=== PATIENT | male | born 1995 | race Caucasian/White ===

== ENCOUNTER 2020-08-16 13:05 | Emergency (ER) | payer OTHER, SELFPAY ==
[2020-08-16 13:07] VITALS: BP 147/98; PULSE 67; RESP 16; TEMP 36.3; O2SAT 97; BMI 19.1
--- NOTE | 2020-08-16 13:29 | CTR_ITS ---
PROCEDURE INFORMATION: Exam: CT Abdomen And Pelvis With Contrast Exam date and time: 08/16/2020 1:50 PM Age: 25 years old Clinical indication: Abdominal pain; Acute; Additional info: Abdominal pain, bloody stools TECHNIQUE: Imaging protocol: Computed tomography of the abdomen and pelvis with contrast. Radiation optimization: All CT scans at this facility use at least one of these dose optimization techniques: automated exposure control; mA and/or kV adjustment per patient size (includes targeted exams where dose is matched to clinical indication); or iterative reconstruction. Contrast material: OMNIPAQUE 300; Contrast volume: 95 ml; Contrast route: INTRAVENOUS (IV); COMPARISON: No relevant prior studies available. RADIATION DOSE METRICS: Total DLP (mGy-cm): 629.21 FINDINGS: Liver: Normal. No mass. Gallbladder and bile ducts: Normal. No calcified stones. No ductal dilation. Pancreas: Normal. No ductal dilation. Spleen: Normal. No splenomegaly. Adrenal glands: Normal. No mass. Kidneys and ureters: 14 mm left renal cyst has benign features. Follow-up is not necessary. Stomach and bowel: There is mucosal thickening of the terminal ileum, cecum, and large bowel with mild adjacent mesenteric inflammatory stranding. Mucosal thickening is most pronounced in the cecal region. Appendix: There has been an appendectomy. Intraperitoneal space: There is a small amount of free fluid the pelvis. Vasculature: Unremarkable. No abdominal aortic aneurysm. Lymph nodes: Unremarkable. No enlarged lymph nodes. Urinary bladder: Unremarkable as visualized. Reproductive: Unremarkable as visualized. Bones/joints: Unremarkable. No acute fracture. Soft tissues: Unremarkable. CT/CT abdomen pelvis w con* [id number] IMPRESSION: Findings as stated above are consistent with a nonspecific enteritis. COMMENTS: Consistent with the [employer]'s Incidental Findings Committee white paper (J Am Brett Radiol 2018): Any incidental renal lesion less than 1 cm or classified as too small to characterize, or any incidental cystic renal lesion characterized as simple-appearing, is likely benign. No follow-up imaging is recommended for these lesions per consensus recommendations based on imaging criteria. Radiation Dose CTDIVOL = (mGy): DLP = 629.21 (mGy-cm)
--- NOTE | 2020-08-16 13:33 | W.ED.GIBLEED ---
HPI - GI Bleed General: Chief complaint: GI Bleed Stated complaint: ABD PAIN/BLOODY STOOL FOR 8 HRS Time Seen by Provider: 08/16/20 13:19 Source: patient Mode of arrival: ambulatory Limitations: no limitations History of Present Illness: HPI Narrative: Patient is a 25-year-old male who presents to the emergency department to be evaluated. Symptoms started about 4 days ago with abdominal pain in the periumbilical region that has persistent. Following that, he developed diarrhea about 2 days ago and it eventually became bloody. He says he has bright red blood in the stools. No perianal pain. He has some nausea but no vomiting. No fever, no sick contacts. He states that he has not eaten anything different than what he normally eats. MD complaint: gross hematochezia Onset (ago): day(s) (2) Pain Consistency: intermittent Severity: mild Relieving factors: none Exacerbating factors: none Associated symptoms: Reports abdominal pain and nausea; Denies chills, easy bruising, epistaxis, fever(s), headache(s), malaise, other bleeding, poor appetite, rash, syncope or vomiting Treatments Prior to Arrival: none Review of Systems General: Reports: 10 or more systems reviewed and unremarkable except in HPI and below Const: Denies: fever(s), chills or malaise ENMT: Denies: epistaxis Card: Denies: syncope GI: Reports: abdominal pain and nausea; Denies: vomiting Skin/Breast: Denies: rash Neuro: Denies: headache(s) Gonzalez/Lymph: Denies: easy bruising Physical Exam Const: COMMON NORMALS: no acute distress, average body habitus, patient oriented x3, no limitations, healthy appearing, alert and well nourished HENMT: COMMON NORMALS: normocephalic, atraumatic and moist oral mucous membranes HEAD & SCALP: normocephalic and atraumatic Neck/C-Spine: COMMON NORMALS: no meningeal signs and no JVD Resp: COMMON NORMALS: normal respiratory effort, No retractions, No use of accessory muscles, clear to auscultation bilaterally and percussion normal AUSCULTATION: clear to auscultation bilaterally PERCUSSION: percussion normal Cardio: COMMON NORMALS: no JVD, regular rate, regular rhythm, S1 normal heart sound present, S2 normal heart sound present, No gallops present (Cardio), No clicks present (Cardio), No murmurs present (Cardio), No rub (Cardio) and Peripheral pulses 2+ throughout RATE: regular rate RHYTHM: regular rhythm HEART SOUNDS: S1 normal heart sound present and S2 normal heart sound present PERIPHERAL PULSES: Peripheral pulses 2+ throughout GI: COMMON NORMALS: Normal to inspection, nondistended, normoactive bowel sounds present, Soft to palpation, No hepatosplenomegaly present, no masses and no bruits PALPATION: Yes Soft to palpation, Yes Tenderness to palpation present (GI) (periumbilical) Details: RLQ and Yes No hepatosplenomegaly present Extremity: COMMON NORMALS: normal to inspection, full ROM, capillary refill normal, no calf tenderness and no pedal edema Neuro: COMMON NORMALS: patient oriented x3 SENSORIUM/ORIENTATION: Yes alert MENINGEAL SIGNS: Yes no meningeal signs Skin: COMMON NORMALS: no rashes or lesions noted, no wounds, turgor normal, no jaundice, no petechiae and no mottling GENERAL SKIN EXAM: no rashes or lesions noted and turgor normal Course Reevaluation(s): Reevaluation #1: Discussed his lab and imaging findings with him. Labs unremarkable. CT scan consistent with enteritis. We will discharge him home on conservative measures. Explained to him that most cases of enteritis are self-limiting and he does not require antibiotics. He voiced understanding and is in agreement with the plan. Time: 15:41 Vital Signs: Vital signs: Vital Signs Temperature 97.4 F L 08/16/20 13:07 Pulse Rate 73 08/16/20 15:57 Respiratory Rate 18 08/16/20 15:57 Blood Pressure 147/92 08/16/20 14:08 Pulse Oximetry 95 08/16/20 15:57 MDM - GI Bleed MDM Narrative: Medical decision making narrative: 25-year-old male who presents to the emergency department with abdominal pain and diarrhea that eventually had some blood. Evaluation in the emergency department is consistent with nonspecific enteritis. No red flags on examination of all lab work-up. He is discharged home on conservative measures. Medical Records: Attestation: I reviewed the patient's medical records. Lab Data: Attestation: I reviewed the patient's lab results. Labs: Lab Results 08/16/20 08/16/20 08/16/20 Range/Units 13:37 13:57 13:57 WBC 6.1 (4.0-10.0) 10^3/ uL RBC 5.60 H (4.1-5.3) 10^6/u L Hgb 17.4 H (11.7-16.6) g/dL Hct 51.4 (42.0-52.0) % MCV 91.8 (80-94) fL MCH 31.1 (28.0-34.0) pg MCHC 33.9 (30.0-36.0) g/dL RDW 12.2 (12.1-15.1) % Plt Count 196 (130-400) 10^3/c mm MPV 10.5 H (7.4-10.4) fL Neut % (Auto) 76.8 % Lymph % (Auto) 10.5 % Haywood % (Auto) 11.9 % Eos % (Auto) 0.3 % Baso % (Auto) 0.3 % Neut # (Auto) 4.66 (1.8-7.7) 10^3/u L Lymph # (Auto) 0.6 L (0.8-4.8) 10^3/u L Haywood # (Auto) 0.7 (0.2-0.9) 10^3/u L Eos # (Auto) 0.0 (0.0-0.8) 10^3/u L Baso # (Auto) 0.0 (0.0-0.1) 10^3/u L Nucleated RBC % (a uto) 0 % Nucleated RBCs # 0.0 /100WBC PT 14.50 (12.1-14.9) SECO NDS INR 1.10 (0.8-1.2) Sodium (136-145) mmol/L Potassium (3.5-5.1) mmol/L Chloride (98-107) mmol/L Carbon Dioxide (22-29) mmol/L Anion Gap (5-19) BUN (6-20) mg/dL Creatinine (0.7-1.2) mg/dL GFR Calculation (90-130) mL/min Glucose (65-115) mg/dL Calculated Osmolal ity (285-295) mOsm/k g Lactate (0.5-2.2) mmol/L Calcium (8.5-10.5) mg/dL Total Bilirubin (0.15-1.2) mg/dL AST (0-40) U/L ALT (0-41) U/L Alkaline Phosphata se (40-130) IU/L C-Reactive Protein (0.0-4.9) mg/L Total Protein (6.6-8.7) g/dL Albumin (3.5-5.2) g/dL Globulin (1.3-4.6) g/dL Lipase (13-60) U/L Urine Color Straw (Yellow) Urine Appearance Clear (CLEAR) Urine pH 5 (5-7) Ur Specific Gravit y 1.010 (1.005-1.030) Urine Protein Neg (Negative) Urine Glucose (UA) Norm (Normal) Urine Ketones 1+ H (Negative) Urine Blood Trace H (Negative) Urine Nitrate Negative (Negative) Urine Bilirubin Neg (Negative) Urine Urobilinogen Norm (Negative) mg/dL Ur Leukocyte Yudith ase Negative (Negative) Urine RBC Rare (0-2) /hpf Urine WBC None (0-5) /hpf Ur Squamous Epith Cells None (0-5) /hpf Amorphous Sediment Not Reportable Urine Bacteria Trace (NONE) /hpf Blood Type Rho(D) Type Antibody Screen 08/16/20 08/16/20 08/16/20 Range/Units 13:57 13:57 13:57 WBC (4.0-10.0) 10^3/ uL RBC (4.1-5.3) 10^6/u L Hgb (11.7-16.6) g/dL Hct (42.0-52.0) % MCV (80-94) fL MCH (28.0-34.0) pg MCHC (30.0-36.0) g/dL RDW (12.1-15.1) % Plt Count (130-400) 10^3/c mm MPV (7.4-10.4) fL Neut % (Auto) % Lymph % (Auto) % Haywood % (Auto) % Eos % (Auto) % Baso % (Auto) % Neut # (Auto) (1.8-7.7) 10^3/u L Lymph # (Auto) (0.8-4.8) 10^3/u L Haywood # (Auto) (0.2-0.9) 10^3/u L Eos # (Auto) (0.0-0.8) 10^3/u L Baso # (Auto) (0.0-0.1) 10^3/u L Nucleated RBC % (a uto) % Nucleated RBCs # /100WBC PT (12.1-14.9) SECO NDS INR (0.8-1.2) Sodium 137 (136-145) mmol/L Potassium 4.3 (3.5-5.1) mmol/L Chloride 101 (98-107) mmol/L Carbon Dioxide 28 (22-29) mmol/L Anion Gap 12.3 (5-19) BUN 9 (6-20) mg/dL Creatinine 0.9 (0.7-1.2) mg/dL GFR Calculation 101.2 (90-130) mL/min Glucose 115 (65-115) mg/dL Calculated Osmolal ity 284 L (285-295) mOsm/k g Lactate 0.9 (0.5-2.2) mmol/L Calcium 9.1 (8.5-10.5) mg/dL Total Bilirubin 0.5 (0.15-1.2) mg/dL AST 32 (0-40) U/L ALT 52 H (0-41) U/L Alkaline Phosphata se 41 (40-130) IU/L C-Reactive Protein 8.5 H (0.0-4.9) mg/L Total Protein 7.2 (6.6-8.7) g/dL Albumin 4.3 (3.5-5.2) g/dL Globulin 2.9 (1.3-4.6) g/dL Lipase 21 (13-60) U/L Urine Color (Yellow) Urine Appearance (CLEAR) Urine pH (5-7) Ur Specific Gravit y (1.005-1.030) Urine Protein (Negative) Urine Glucose (UA) (Normal) Urine Ketones (Negative) Urine Blood (Negative) Urine Nitrate (Negative) Urine Bilirubin (Negative) Urine Urobilinogen (Negative) mg/dL Ur Leukocyte Yudith ase (Negative) Urine RBC (0-2) /hpf Urine WBC (0-5) /hpf Ur Squamous Epith Cells (0-5) /hpf Amorphous Sediment Urine Bacteria (NONE) /hpf Blood Type B Positive Rho(D) Type Positive / 4+ Antibody Screen Negative Imaging Data^: CT Abd/Pel: Attestation: I personally reviewed and interpreted this imaging study as follows: Radiologist's impression: Nick Cplbzhpley[address] [facility].[place], [place] [address]OY Scan ReportSigned Patient: Chanda Paulson #: [id number]: 1995Acct#:[id number]/Sex: 25 / MADM Date: 08/16/20Loc: ERRoom/Bed:Attending Dr: Ordering Provider/Ordering MD: Cornelia Ho MD, [facility] [place] Date of Service: 08/16/20 Procedure(s): CT abdomen pelvis w con* [id number] Accession Number(s): [id number] Report Number: [id number] PROCEDURE INFORMATION: Exam: CT Abdomen And Pelvis With Contrast Exam date and time: 08/16/2020 1:50 PM Age: 25 years old Clinical indication: Abdominal pain; Acute; Additional info: Abdominal pain, bloody stools TECHNIQUE: Imaging protocol: Computed tomography of the abdomen and pelvis with contrast. Radiation optimization: All CT scans at this facility use at least one of these dose optimization techniques: automated exposure control; mA and/or kV adjustment per patient size (includes targeted exams where dose is matched to clinical indication); or iterative reconstruction. Contrast material: OMNIPAQUE 300; Contrast volume: 95 ml; Contrast route: INTRAVENOUS (IV); COMPARISON: No relevant prior studies available. RADIATION DOSE METRICS: Total DLP (mGy-cm): 629.21 FINDINGS: Liver: Normal. No mass. Gallbladder and bile ducts: Normal. No calcified stones. No ductal dilation. Pancreas: Normal. No ductal dilation. Spleen: Normal. No splenomegaly. Adrenal glands: Normal. No mass. Kidneys and ureters: 14 mm left renal cyst has benign features. Follow-up is not necessary. Stomach and bowel: There is mucosal thickening of the terminal ileum, cecum, and large bowel with mild adjacent mesenteric inflammatory stranding. Mucosal thickening is most pronounced in the cecal region. Appendix: There has been an appendectomy. Intraperitoneal space: There is a small amount of free fluid the pelvis. Vasculature: Unremarkable. No abdominal aortic aneurysm. Lymph nodes: Unremarkable. No enlarged lymph nodes. Urinary bladder: Unremarkable as visualized. Reproductive: Unremarkable as visualized. Bones/joints: Unremarkable. No acute fracture. Soft tissues: Unremarkable. CT/CT abdomen pelvis w con* [id number] IMPRESSION: Findings as stated above are consistent with a nonspecific enteritis. COMMENTS: Consistent with the [employer]'s Incidental Findings Committee white paper (J Am Brett Radiol 2018): Any incidental renal lesion less than 1 cm or classified as too small to characterize, or any incidental cystic renal lesion characterized as simple-appearing, is likely benign. No follow-up imaging is recommended for these lesions per consensus recommendations based on imaging criteria. Radiation Dose CTDIVOL = (mGy): DLP = 629.21 (mGy-cm) Dictated By:Barbara Nelson MDSigned By:Barbara Nelson MDSigned Date/Time:08/16/201457DD/ 56 Discharge Plan Discharge Patient Disposition: Home Clinical Impression: Enteritis Condition: Stable Prescriptions: No Action No Known Home Medications RF: 0 Discharge Orders: Discharge ED (Routine); Ordered 08/16/20 Ordered By: Cornelia Ho Referrals: Wil Heredia MD [Primary Care Provider] - 1-3 days Discharge Diet: Usual diet Discharge Activity: Increase activity as tolerated Patient Instructions: Diarrhea - Adult, Gastroenteritis (ED) Activity Restrictions/Additional Instructions: Return for any new or worsening symptoms. Follow up with your primary care provider within 3 days. Push fluids to keep well hydrated. Most causes of diarrhea are viral and is self limited. It will resolve on its own. Coding Level of Care Code ED Beet Topper for Chg Fwd Exam Comprehensive
[2020-08-16 14:06] LABS: Basophils % 0.3 %; Eosinophils % 0.3 %; Hematocrit 51.4 % (42.0-52.0); Hemoglobin 17.4 g/dL (11.7-16.6); Lymphocytes # 0.6 10^3/uL (0.8-4.8); Lymphocytes % 10.5 %; Mean Corpuscular HGB Conc 33.9 g/dL (30.0-36.0); Mean Corpuscular Hemoglobin 31.1 pg (28.0-34.0); Mean Corpuscular Volume 91.8 fL (80-94); Mean Platelet Volume 10.5 fL (7.4-10.4); Monocytes # 0.7 10^3/uL (0.2-0.9); Monocytes % 11.9 %; Neutrophils # 4.66 10^3/uL (1.8-7.7); Neutrophils % 76.8 %; Nucleated Red Blood Cells % 0 %; Platelet Count 196 10^3/cmm (130-400); Red Cell Distribution Width 12.2 % (12.1-15.1); White Blood Count 6.1 10^3/uL (4.0-10.0)
[2020-08-16 14:07] LABS: Glucose Urine UA Norm (Normal); Protein Urine Neg (Negative); Urine Appearance Clear (CLEAR); Urine Color Straw (Yellow); pH Urine 5 (5-7)
[2020-08-16 14:08] VITALS: BP 147/92; PULSE 79; O2SAT 93
[2020-08-16 14:08] LABS: Add Urine Culture? No; Add Urine Microscopic? YES; Bacteria Urine TRACE /hpf; Bilirubin Urine Neg (Negative); Blood Urine Trace (Negative); Ketones Urine 1+ (Negative); Leukocyte Esterase Urine Negative (Negative); Nitrate Urine Negative (Negative); RBC Urine RARE /hpf (0-2); Urobilinogen Urine Norm (Negative)
[2020-08-16 14:22] LABS: Alanine Aminotransferase 52 U/L (0-41); Albumin Level 4.3 g/dL (3.5-5.2); Alkaline Phosphatase 41 IU/L (40-130); Anion Gap 12.3 (5-19); Aspartate Amino Transferase 32 U/L (0-40); Blood Urea Nitrogen 9 mg/dL (6-20); C Reactive Protein 8.5 mg/L (0.0-4.9); Calcium 9.1 mg/dL (8.5-10.5); Carbon Dioxide 28 mmol/L (22-29); Chloride 101 mmol/L (98-107); Globulin 2.9 g/dL (1.3-4.6); Glomerular Filtration Rate 101.2 mL/min (90-130); Glucose 115 mg/dL (65-115); Lactate (Lactic Acid level) 0.9 mmol/L (0.5-2.2); Lipase 21 U/L (13-60); Osmolality Calculated 284 mOsm/kg (285-295); Potassium 4.3 mmol/L (3.5-5.1); Sodium 137 mmol/L (136-145); Total Bilirubin 0.5 mg/dL (0.15-1.2); Total Protein 7.2 g/dL (6.6-8.7)
[2020-08-16] MEDS: iohexol 300 mg/mL 100 mL Btl IV (14:23)
[2020-08-16] MEDS: sodium chloride 0.9% 1,000 ML 999 ML IV (14:47)
[2020-08-16 15:00] VITALS: PULSE 70; RESP 18; O2SAT 96
[2020-08-16 15:57] VITALS: PULSE 73; RESP 18; O2SAT 95
== END 2020-08-16 15:58 | disposition home or self-care (01) ==
PROVIDERS: Emergency Provider Family Medicine; PCP Family Medicine
DX: K52.9 Noninfective gastroenteritis and colitis, unspecified (principal)
CPT/HCPCS: 74177; 80053; 81001; 83605; 83690; 85025; 85610; 86140; 86850; 86900; 96360; 99283; J7030; Q9967

== ENCOUNTER → 2023-02-11 09:13 | Outpatient (BNVA) | payer OTHER, SELFPAY | PROVIDERS: PCP Clinical Nurse Specialist Adult Health; Visit Provider Clinical Nurse Specialist Adult Health | DX: K21.9 Gastro-esophageal reflux disease without esophagitis (principal); J02.9 Acute pharyngitis, unspecified | CPT/HCPCS: 84443; 87070; 87880 ==